=== PATIENT | male | born 1960 | race Caucasian/White ===

== ENCOUNTER 2016-12-21 22:42 | Inpatient (IN) | payer OTHER ==
[2016-12-21 23:05] VITALS: BMI 38.4
--- NOTE | 2016-12-21 23:43 | HP ---
CIWA Score - CIWA Score Nausea/Vomitin-Mild Nausea/No Vomiting Muscle Tremors: 2 Anxiety: 2 Agitation: 2 Paroxysmal Sweats: 2 Orientation: 0-Oriented Tacttile Disturbances: 1-Very Mild Itch/Numbness Auditory Disturbances: 0-None Visual Disturbances: 2-Mild Sensitivity Headache: 3-Moderate CIWA-Ar Total Score: 15 Admission ROS BHS - HPI Chief Complaint: WITHDRAWAL SYMPTOMS Allergies/Adverse Reactions: Allergies Allergy/AdvReac Type Severity Reaction Status Date / Time No Known Allergies Allergy Verified 12/21/16 23:39 History of Present Illness: 55 Y.O. MAN WITH AN EXTENSIVE HISTORY OF ALCOHOL DEPENDENCE IS SEEKING DETOX. HE REPORTS HE HAS NEVER SOUGHT TREATMENT IN THE PAST FOR HIS ALCOHOL DEPENDENCE. Exam Limitations: No Limitations - Ebola screening Have you traveled outside of the country in the last 21 days: No Have you had contact with anyone from an Ebola affected area: No Have you been sick,other than usual withdrawal symptoms: No Do you have a fever: No - Review of Systems Constitutional: Chills, Diaphoresis, Night Sweats EENT: reports: Tearing Respiratory: reports: No Symptoms reported Cardiac: reports: No Symptoms Reported GI: reports: Poor Appetite : reports: No Symptoms Reported Musculoskeletal: reports: No Symptoms Reported Integumentary: reports: No Symptoms Reported Neuro: reports: Headache, Tremors Endocrine: reports: No Symptoms Reported Hematology: reports: No Symptoms Reported Psychiatric: reports: Orientated x3 Other Systems: Reviewed and Negative Patient History - Patient Medical History Hx Anemia: No Hx Asthma: No Hx Chronic Obstructive Pulmonary Disease (COPD): No Hx Cancer: No Hx Cardiac Disorders: No Hx Congestive Heart Failure: No Hx Hypertension: Yes Hx Hypercholesterolemia: Yes Hx Pacemaker: No HX Cerebrovascular Accident: No Hx Seizures: No Hx Dementia: No Hx Diabetes: Yes (TYPE II ) Hx Gastrointestinal Disorders: No Hx Liver Disease: No Hx Genitourinary Disorders: No Hx Sexually Transmitted Disorders: No Hx Renal Disease (ESRD): No Hx Thyroid Disease: No Hx Human Immunodeficiency Virus (HIV): No Hx Hepatitis C: No Hx Depression: No Hx Suicide Attempt: No Hx Bipolar Disorder: No Hx Schizophrenia: No - Patient Surgical History Past Surgical History: Yes Hx Orthopedic Surgery: Yes (LEFT KNEE, CARPAL TUNNEL SX-LEFT HAND ) Other Surgical History: GASTRIC BYPASS Anesthesia Reaction: No - PPD History Previous Implant?: Yes Documented Results: Negative w/o proof PPD to be Administered?: Yes - Reproductive History Patient is a Female of Child Bearing Age (11 -55 yrs old): No - Smoking Cessation Smoking history: Former smoker Have you smoked in the past 12 months: No Initiated information on smoking cessation: No - Substance & Tx. History Hx Alcohol Use: Yes Substance Use Type: Alcohol Hx Substance Use Treatment: No - Substances Abused Alcohol Route: Oral Frequency: Daily Amount used: 20 OZ OF LIQUOR Age of first use: 15 Date of Last Use: 12/21/16 Family Disease History - Family Disease History Family Disease History: Diabetes: Mother, Heart Disease: Mother, CA: Mother, Other: Father (HEROIN DEPENDENCE) Admission Physical Exam [facility] - Vital Signs Vital Signs: Vital Signs - 24 hr 12/21/16 23:00 Temperature 98 F Pulse Rate 98 H Respiratory 120 H Rate Blood Pressure 148/86 - Physical General Appearance: Yes: Obese HEENTM: Yes: Hearing grossly Normal, Normal ENT Inspection, Normocephalic, Normal Voice Respiratory: Yes: Chest Non-Tender, Lungs Clear, Normal Breath Sounds, No Respiratory Distress, No Accessory Muscle Use Neck: Yes: No masses,lesions,Nodules Breast: Yes: Breast Exam Deferred Cardiology: Yes: Regular Rhythm, Regular Rate Abdominal: Yes: Non Tender, Flat, Soft Genitourinary: Yes: Other (NO COMPLAINTS REPORTED) Back: Yes: Normal Inspection Musculoskeletal: Yes: Gait Steady Extremities: Yes: Normal Inspection, Normal Range of Motion, Non-Tender, Tremors Neurological: Yes: pantry cook II-XII NML intact, Fully Oriented, Alert, Motor Strength 5/5, Normal Mood/Affect, Normal Response Integumentary: Yes: Normal Color, Dry, Warm Lymphatic: Yes: Within Normal Limits - Diagnostic (1) Alcohol dependence with uncomplicated withdrawal Current Visit: Yes Status: Chronic (2) Diabetes type 2, controlled Current Visit: Yes Status: Chronic (3) Hyperlipidemia Current Visit: Yes Status: Chronic (4) Obesity (BMI 30-39.9) Current Visit: Yes Status: Chronic Cleared for Admission [facility] - Detox or Rehab [facility] Level of Care: Medically Managed Detox Regimen/Protocol: Librium [facility] Breath Alcohol Content Breath Alcohol Content: 0.097 Urine Drug Screen - Results Drug Screen Negative: Yes
[2016-12-21] MEDS ORDERED: MAG HYDROX/AL HYDROX/SIMETH 30 ML UNIT-DOSE CUP PO PRN (23:56)
[2016-12-21] MEDS ORDERED: IBUPROFEN 400 MG TABLET (FP) PO PRN (23:56)
[2016-12-21] MEDS ORDERED: chlordiazePOXIDE HCL 25 MG CAPSULE PO PRN (23:56)
[2016-12-21] MEDS ORDERED: chlordiazePOXIDE HCL 25 MG CAPSULE PO ONE (23:56)
[2016-12-21] MEDS ORDERED: P-EPHED 60MG/TRIPROLIDI 2.5MG TABLET PO PRN (23:56)
[2016-12-21] MEDS ORDERED: ACETAMINOPHEN 325 MG TABLET (FP) PO PRN (23:56)
[2016-12-21] MEDS ORDERED: guaiFENesin/D-METHORPHAN HB 10 ML UNIT-DOSE CUPS PO PRN (23:56)
[2016-12-21] MEDS ORDERED: hydrOXYzine PAMOATE 50 MG CAPSULE (FP) PO PRN (23:56)
[2016-12-21] MEDS ORDERED: MAGNESIUM HYDROX 2400MG/30ML ORAL SUSPENSION 30 ML CUP PO PRN (23:56)
[2016-12-21] MEDS ORDERED: LOPERAMIDE HCL 2 MG CAPSULE PO PRN (23:56)
[2016-12-21] MEDS ORDERED: MAGNESIUM CITRATE 300 ML BOTTLE PO PRN (23:56)
[2016-12-21] MEDS ORDERED: MENTHOL/PHENOL 1 EACH UD MM PRN (23:56)
[2016-12-22] MEDS: chlordiazePOXIDE HCL 25 MG CAPSULE PO SCH ×5 (06:33→22:16)
[2016-12-22] MEDS: PRENATAL VITAMINS W/ FOLIC ACID TABLET (FP) PO SCH (10:14)
[2016-12-22 10:27] LABS: ALBUMIN 3.3 g/dl (3.4-5.0); ANION GAP 12 (8-16); CALCIUM 8.5 mg/dL (8.5-10.1); CO2 27 mmol/L (21-32); CREATININE 0.8 mg/dL (0.7-1.3); GLUCOSE,RANDOM 88 mg/dL (74-106); SGOT/AST 23 U/L (15-37); SGPT/ALT 24 U/L (12-78)
[2016-12-22 10:28] LABS: ALK PHOS 102 U/L (45-117); BILIRUBIN,TOTAL 0.8 mg/dL (0.2-1.0); TOT PROT 6.5 g/dl (6.4-8.2)
[2016-12-22] MEDS ORDERED: FLU VACCINE QUAD 60 MCG/0.5 ML (MDV 17-18) IM ONE (12:00)
--- NOTE | 2016-12-22 13:05 | EKG ---
Test Reason : Blood Pressure : / mmHG Vent. Rate : 096 BPM Atrial Rate : 096 BPM P-R Int : 174 ms QRS Dur : 148 ms QT Int : 414 ms P-R-T Axes : 051 -36 -03 degrees QTc Int : 523 ms NORMAL SINUS RHYTHM POSSIBLE LEFT ATRIAL ENLARGEMENT LEFT AXIS DEVIATION RIGHT BUNDLE BRANCH BLOCK ABNORMAL ECG NO PREVIOUS ECGS AVAILABLE Confirmed by BRYAN SEARS MD ([id number]) on 12/22/2016 1:05:10 PM Referred By: Confirmed By:BRYAN SEARS MD
--- NOTE | 2016-12-22 13:54 | PN ---
[facility] CIWA - CIWA Score Nausea/Vomitin Muscle Tremors: 3 Anxiety: 3 Agitation: 3 Paroxysmal Sweats: 1-Minimal Palms Moist Orientation: 0-Oriented Tacttile Disturbances: 1-Very Mild Itch/Numbness Auditory Disturbances: 1-Very Mild Visual Disturbances: 1-Very Mild Sensitivity Headache: 2-Mild CIWA-Ar Total Score: 18 BHS Progress Note (SOAP) Subjective: ALERT,IRRITABLE,ANXIOUS,INTERRUPTED SLEEP,TREMOR Objective: 12/22/16 13:52 Vital Signs Temperature 97.8 F 12/22/16 13:33 Pulse Rate 96 H 12/22/16 13:33 Respiratory Rate 16 12/22/16 13:33 Blood Pressure 138/77 12/22/16 13:33 O2 Sat by Pulse Oximetry (%) EKG NSR RBBB NO CHEST PAIN,NO SOB,NO DIZZINESS Laboratory Last Values Sodium 138 mmol/L (136-145) 12/22/16 08:00 Potassium 3.5 mmol/L (3.5-5.1) 12/22/16 08:00 Chloride 99 mmol/L (98-107) 12/22/16 08:00 Carbon Dioxide 27 mmol/L (21-32) 12/22/16 08:00 Anion Gap 12 (8-16) 12/22/16 08:00 BUN 14 mg/dL (7-18) 12/22/16 08:00 Creatinine 0.8 mg/dL (0.7-1.3) 12/22/16 08:00 Creat Clearance w eGFR > 60 (>60) 12/22/16 08:00 POC Glucometer 99 UNITS (()) 12/22/16 06:46 Random Glucose 88 mg/dL (74-106) 12/22/16 08:00 Calcium 8.5 mg/dL (8.5-10.1) 12/22/16 08:00 Total Bilirubin 0.8 mg/dL (0.2-1.0) 12/22/16 08:00 AST 23 U/L (15-37) 12/22/16 08:00 ALT 24 U/L (12-78) 12/22/16 08:00 Alkaline Phosphatase 102 U/L (45-117) 12/22/16 08:00 Total Protein 6.5 g/dl (6.4-8.2) 12/22/16 08:00 Albumin 3.3 g/dl (3.4-5.0) L 12/22/16 08:00 RPR Titer Nonreactive (NONREACTIVE) 12/22/16 08:00 LABS PENDING Assessment: 12/22/16 13:53 WITHDRAWAL SYMPTOM Plan: CONTINUE DETOX
--- NOTE | 2016-12-22 19:09 | CONSULT ---
[facility] Psychiatric Consult - Data Date of interview: 12/22/16 Admission source: [facility] Identifying data: First admission to [facility] for this 55 y/o male seeking detox treatment on for alcohol dependence.Patient is marrired,a father of five,domiciled and self employed. Substance Abuse History: Confirmed by the patient in this session. Smoking Cessation. Smoking history: Former smoker. Have you smoked in the past 12 months: No. Initiated information on smoking cessation: No. - Substance & Tx. History. Hx Alcohol Use: Yes. Substance Use Type: Alcohol. Hx Substance Use Treatment: No. - Substances Abused. Alcohol. Route: Oral. Frequency: Daily. Amount used: 20 OZ OF LIQUOR. Age of first use: 15. Date of Last Use: 12/21/16 Medical History: Consistent wit diabetes mellitus,hypertension, hypercholesterolemia and a history of orthosurgery (carpal tunnel syndrome in left wrist + injury to left knee). Psychiatric History: Never hospitalized in Psychiatry.Mr Aguila indicates that he gets prescribed topamax (weight control) 100 mg/day and wellbutrin 200 mg/ day (craving) by two primary care doctors.No report of psychiatric OPD care but the patient admits to a reduction of his anxiety from bupropion.Patient denies history of suicide attempts. Physical/Sexual Abuse/Trauma History: No reported history of abuse. Additional Comment: Drug Screen is negative. Mental Status Exam - Mental Status Exam Alert and Oriented to: Time, Place, Person Cognitive Function: Good Patient Appearance: Well Groomed (obese) Mood: Withdrawn, Anxious Affect: Constricted Patient Behavior: Fatigued, Cooperative Speech Pattern: Clear, Appropriate Voice Loudness: Normal Thought Process: Intact, Goal Oriented Thought Disorder: Not Present Hallucinations: Denies Suicidal Ideation: Denies Homicidal Ideation: Denies Insight/Judgement: Poor Sleep: Poorly, Difficulty falling asleep Appetite: Good Muscle strength/Tone: Normal Gait/Station: Normal Psychiatric Findings - Problem List (Lynd 1, 2,3) (1) Alcohol dependence with uncomplicated withdrawal Current Visit: Yes Status: Acute (2) Alcohol-induced mood disorder Current Visit: Yes Status: Acute (3) Diabetes type 2, controlled Current Visit: Yes Status: Chronic (4) Hyperlipidemia Current Visit: Yes Status: Chronic (5) Obesity (BMI 30-39.9) Current Visit: Yes Status: Chronic (6) Insomnia Current Visit: Yes Status: Acute - Initial Treatment Plan Initial Treatment Plan: Psychoeducation.Detoxification.Medications : wellbutrin SR 200 mg po daily + topamax 100 mg po daily.Side effects/benefits discussed with patient.He agrees to resume these medications in this hospital course.Observation.Medications confirmed via survey of pharmacy claims of at [facility] (3 month refills).
[2016-12-22 20:08] LABS: MCH 32.3 pg (25.7-33.7); MCHC 33.6 g/dl (32.0-35.9); MEAN CELL VOLUME 96.2 fl (80-96); MEAN PLT VOLUME 8.1 fl (7.5-11.1); PLATELET COUNT 231 K/MM3 (134-434); RDW 12.8 % (11.9-15.9); WHITE BLOOD COUNT 8.2 K/mm3 (4.0-10.0)
[2016-12-22] MEDS: THIAMINE HCL 100 MG TABLET (FP) PO SCH (22:15)
[2016-12-22] MEDS: diphenhydrAMINE HCL 50 MG CAPSULE PO PRN (22:15)
[2016-12-22] MEDS: ATORVASTATIN CA 20 MG TABLET (FP) PO SCH (22:16)
[2016-12-23] MEDS: chlordiazePOXIDE HCL 25 MG CAPSULE PO SCH ×3 (05:16→17:47)
[2016-12-23] MEDS: buPROPion HCL 100 MG TABLET PO SCH ×2 (10:21→17:47)
[2016-12-23] MEDS: PRENATAL VITAMINS W/ FOLIC ACID TABLET (FP) PO SCH (10:21)
[2016-12-23] MEDS: TOPIRAMATE 100 MG TABLET PO SCH (10:21)
--- NOTE | 2016-12-23 13:11 | PN ---
S CIWA - CIWA Score Nausea/Vomitin Muscle Tremors: 3 Anxiety: 3 Agitation: 2 Paroxysmal Sweats: 1-Minimal Palms Moist Orientation: 0-Oriented Tacttile Disturbances: 1-Very Mild Itch/Numbness Auditory Disturbances: 1-Very Mild Visual Disturbances: 0-None Headache: 2-Mild CIWA-Ar Total Score: 16 BHS Progress Note (SOAP) Subjective: ALERT,IRRITABLE,ANXIOUS,INTERRUPTED SLEEP,TREMOR Objective: 12/23/16 13:09 Vital Signs Temperature 97.3 F L 12/23/16 11:45 Pulse Rate 82 12/23/16 11:45 Respiratory Rate 20 12/23/16 11:45 Blood Pressure 148/92 12/23/16 11:45 O2 Sat by Pulse Oximetry (%) Laboratory Last Values WBC 8.2 K/mm3 (4.0-10.0) 12/22/16 08:00 RBC 4.22 M/mm3 (4.00-5.60) 12/22/16 08:00 Hgb 13.6 GM/dL (11.7-16.9) 12/22/16 08:00 Hct 40.5 % (35.4-49) 12/22/16 08:00 MCV 96.2 fl (80-96) H 12/22/16 08:00 MCH 32.3 pg (25.7-33.7) 12/22/16 08:00 MCHC 33.6 g/dl (32.0-35.9) 12/22/16 08:00 RDW 12.8 % (11.9-15.9) 12/22/16 08:00 Plt Count 231 K/MM3 (134-434) 12/22/16 08:00 MPV 8.1 fl (7.5-11.1) 12/22/16 08:00 Sodium 138 mmol/L (136-145) 12/22/16 08:00 Potassium 3.5 mmol/L (3.5-5.1) 12/22/16 08:00 Chloride 99 mmol/L (98-107) 12/22/16 08:00 Carbon Dioxide 27 mmol/L (21-32) 12/22/16 08:00 Anion Gap 12 (8-16) 12/22/16 08:00 BUN 14 mg/dL (7-18) 12/22/16 08:00 Creatinine 0.8 mg/dL (0.7-1.3) 12/22/16 08:00 Creat Clearance w eGFR > 60 (>60) 12/22/16 08:00 POC Glucometer 105 UNITS (()) 12/23/16 05:19 Random Glucose 88 mg/dL (74-106) 12/22/16 08:00 Calcium 8.5 mg/dL (8.5-10.1) 12/22/16 08:00 Total Bilirubin 0.8 mg/dL (0.2-1.0) 12/22/16 08:00 AST 23 U/L (15-37) 12/22/16 08:00 ALT 24 U/L (12-78) 12/22/16 08:00 Alkaline Phosphatase 102 U/L (45-117) 12/22/16 08:00 Total Protein 6.5 g/dl (6.4-8.2) 12/22/16 08:00 Albumin 3.3 g/dl (3.4-5.0) L 12/22/16 08:00 RPR Titer Nonreactive (NONREACTIVE) 12/22/16 08:00 Assessment: 12/23/16 13:10 WITHDRAWAL SYMPTOM Plan: CONTINUE DETOX,BGM MONITORING
[2016-12-23] MEDS: THIAMINE HCL 100 MG TABLET (FP) PO SCH (22:15)
[2016-12-23] MEDS: diphenhydrAMINE HCL 50 MG CAPSULE PO PRN (22:15)
[2016-12-23] MEDS: chlordiazePOXIDE 5 MG CAPSULE PO SCH (22:15)
[2016-12-23] MEDS: ATORVASTATIN CA 20 MG TABLET (FP) PO SCH (22:16)
[2016-12-24] MEDS: chlordiazePOXIDE 5 MG CAPSULE PO SCH ×3 (05:49→17:55)
[2016-12-24] MEDS: buPROPion HCL 100 MG TABLET PO SCH ×2 (09:13→17:55)
[2016-12-24] MEDS: TOPIRAMATE 100 MG TABLET PO SCH (10:13)
[2016-12-24] MEDS: PRENATAL VITAMINS W/ FOLIC ACID TABLET (FP) PO SCH (10:14)
--- NOTE | 2016-12-24 11:17 | PN ---
BHS Progress Note (SOAP) Subjective: little sweats i am feeling better Objective: 12/24/16 11:22 Vital Signs Temperature 96.6 F L 12/24/16 09:33 Pulse Rate 89 12/24/16 09:33 Respiratory Rate 20 12/24/16 09:33 Blood Pressure 140/75 12/24/16 09:33 O2 Sat by Pulse Oximetry (%) aaox3 ambulating no acute distress Assessment: 12/24/16 11:22 mild withdrawal Plan: continue detox d/c in am
[2016-12-24] MEDS: ATORVASTATIN CA 20 MG TABLET (FP) PO SCH (22:31)
[2016-12-24] MEDS: THIAMINE HCL 100 MG TABLET (FP) PO SCH (22:31)
[2016-12-24] MEDS: chlordiazePOXIDE HCL 10 MG CAPSULE PO SCH (22:31)
[2016-12-25] MEDS: chlordiazePOXIDE HCL 10 MG CAPSULE PO SCH (05:47)
--- NOTE | 2016-12-25 09:18 | DS ---
[facility] Detox Discharge Summary Admission Date: 12/21/16 Discharge Date: 12/25/16 - History Present History: Alcohol Dependence - Physical Exam Results Vital Signs: Vital Signs Temperature 97.5 F L 12/25/16 06:00 Pulse Rate 73 12/25/16 06:00 Respiratory Rate 20 12/25/16 06:00 Blood Pressure 116/77 12/25/16 06:00 O2 Sat by Pulse Oximetry (%) - Treatment Hospital Course: Detox Protocol Followed, Detoxed Safely, Responded well, Discharged Condition Good, Rehab Referral Accepted - Medication Discharge Medications: Ambulatory Orders Metformin HCl 850 mg PO DAILY 12/22/16 Topiramate [Topamax] 100 mg PO DAILY 12/22/16 Wellbutrin - 200 mg PO BID 12/22/16 - Diagnosis (1) Alcohol dependence with uncomplicated withdrawal Current Visit: Yes Status: Chronic (2) Diabetes type 2, controlled Current Visit: Yes Status: Chronic Qualifiers: Diabetes mellitus complication status: without complication (3) Hyperlipidemia Current Visit: Yes Status: Chronic Qualifiers: Hyperlipidemia type: unspecified Qualified Code(s): E78.5 - Hyperlipidemia, unspecified; E78.5 - Hyperlipidemia, unspecified; E78.5 - Hyperlipidemia, unspecified (4) Obesity (BMI 30-39.9) Current Visit: Yes Status: Chronic - AMA Did Patient Leave Against Medical Advice: No
[2016-12-25 09:39] LABS: URINE APPEARANCE CLEAR; URINE BILIRUBIN NEGATIVE (NEGATIVE); URINE BLOOD NEGATIVE (NEGATIVE); URINE COLOR YELLOW; URINE GLUCOSE (UA) 1+ (NEGATIVE); URINE KETONE NEGATIVE (NEGATIVE); URINE LEUK ESTERASE NEGATIVE (NEGATIVE); URINE NITRITE NEGATIVE (NEGATIVE); URINE PROTEIN NEGATIVE (NEGATIVE)
[2016-12-25] MEDS: buPROPion HCL 100 MG TABLET PO SCH (09:56)
[2016-12-25] MEDS: PRENATAL VITAMINS W/ FOLIC ACID TABLET (FP) PO SCH (09:56)
[2016-12-25] MEDS: TOPIRAMATE 100 MG TABLET PO SCH (09:57)
[2016-12-25 10:52] VITALS: BP 148/88; PULSE 81; TEMP 97.7
== END 2016-12-25 10:10 | disposition home or self-care (01) | DRG 775 ==
LOC: YASAS 22:42 → Y6N 23:22
PROVIDERS: ADMIT Internal Medicine; ATTEND Internal Medicine
PROC: HZ2ZZZZ Detoxification Services for Substance Abuse Treatment (ICD-10-PCS; principal; 2016-12-21)
DX: F10.230 Alcohol dependence with withdrawal, uncomplicated (principal); F10.24 Alcohol dependence with alcohol-induced mood disorder; G47.00 Insomnia, unspecified; I10 Essential (primary) hypertension; E11.9 Type 2 diabetes mellitus without complications; Z79.84 Long term (current) use of oral hypoglycemic drugs; E78.5 Hyperlipidemia, unspecified; E66.9 Obesity, unspecified; Z68.28 Body mass index [BMI] 28.0-28.9, adult; Z87.891 Personal history of nicotine dependence
CPT/HCPCS: 36415; 80053; 81003; 85027; 86593; 93005; 93010